=== PATIENT | female | born 1960 | race Caucasian/White ===

== ENCOUNTER 2021-01-31 09:49 | Emergency (ER) | payer BC ==
[~2021-01-31] VITALS: Ht 162.6 cm; Wt 108.9 kg
[2021-01-31] MEDS ORDERED: DICYCLOMINE HCL 20 MG/2 ML VIAL IM ONE (10:30)
== END 2021-01-31 10:29 | disposition home or self-care (01) ==
LOC: ER 10:18
DX: R10.10 Upper abdominal pain, unspecified (principal); R11.2 Nausea with vomiting, unspecified
CPT/HCPCS: 99282; J0500